=== PATIENT | male | born 1940 | race Two or more races ===

== ENCOUNTER 2021-09-23 20:25 | Inpatient (IN) | payer OTHER, MEDICAID ==
[~2021-09-23] VITALS: Ht 172.7 cm; Wt 63.1 kg
[~2021-09-23 20:25] MED LIST: SUCCINYLCHOLINE CHLORIDE 200MG/10ML IV ONE
[2021-09-23] MEDS ORDERED: LEVETIRACETAM 500MG PREMIX 100 ML IV ONE (20:45)
[2021-09-23] MEDS ORDERED: LORAZEPAM 2MG/ML CPJ IV ONE (20:45)
[2021-09-23] MEDS ORDERED: SUCCINYLCHOLINE CHLORIDE 200MG/10ML IV ONE (21:15)
[2021-09-23] MEDS ORDERED: PROPOFOL 10MG/ML 100ML 100 ML IV SCH (21:45)
[2021-09-23 22:14] LABS: BG BASE EXCESS -10.8 mmol/L (-2.0-2.0); BG CARBOXYHEMOGLOBIN 0.2 % (0.5-1.5); BG FRACTION INSPIRED OXYGEN 60; BG HCO3 ACT 13.8 mmol/L (22.0-26.0); BG METHEMOGLOBIN 0.5 % (0.0-1.5); BG OXYHEMOGLOBIN 98.3 % (94.0-97.0); BG PCO2 27.3 mmHg (35.0-45.0); BG PH 7.321 (7.350-7.450); BG PO2 241.4 mmHg (75.0-100.0); BG SAMPLE SITE LEFT RADIAL; BG TOTAL HEMOGLOBIN 12.2 g/dL (12.0-18.0)
[2021-09-23] MEDS ORDERED: KETAMINE HCL 50 MG/ML 10ML IV ONE (22:15)
[2021-09-23] MEDS ORDERED: LEVOFLOXACIN 500MG PREMIX 100 ML IV ONE (22:30)
[2021-09-23] MEDS ORDERED: SODIUM CHLORIDE 0.9% 1,000 ML IV ONE (22:30)
[2021-09-23] MEDS ORDERED: PIPERACILLIN/TAZOBACTAM 3.375GM/50ML PREMIX IV ONE (22:30)
[2021-09-23] MEDS ORDERED: PIPERACILLIN/TAZ 3.375G PREMIX 50 ML IV NR (22:30)
[2021-09-23 22:41] LABS: BASOPHILS % 0.6 % (0.0-2.0); EOSINOPHILS % 1.2 % (0.0-5.0); HEMOGLOBIN. 11.6 g/dL (14.0-18.0); MEAN CORPUSCULAR HEMOGLOBIN 31.3 pg (28.0-32.0); MEAN CORPUSCULAR VOLUME 91.8 fL (80.0-94.0); MEAN PLATELET VOLUME 7.6 fl (7.4-10.4); MONOCYTES % 5.1 % (2.0-8.0); NEUTROPHILS % 65.1 % (40.0-76.0); PLATELET 200 x1000/uL (130-400); RED CELL DISTRIBUTION WIDTH 14.7 % (11.6-14.6)
[2021-09-23 22:42] LABS: CHLORIDE 107 mEq/L (98-107)
[2021-09-24] VITALS (33 sets, daily range): BP systolic 56–191; BP diastolic 27–110
[2021-09-24] MEDS ORDERED: LEVETIRACETAM 500MG PREMIX 100 ML IV ONE (01:30)
[2021-09-24] MEDS ORDERED: NICARDIPINE 100 MG in SODIUM CHLORIDE 0.9% 60 ML IV PRN ×2 (01:45→14:30)
[2021-09-24] MEDS ORDERED: MANNITOL 12.5G (25%) VIAL 50ML IV ONE (03:45)
[2021-09-24 03:59] LABS: BG CARBOXYHEMOGLOBIN 0.3 % (0.5-1.5); BG DEOXYHEMOGLOBIN 0.9 % (0.0-5.0); BG FRACTION INSPIRED OXYGEN 40; BG HCO3 ACT 21.8 mmol/L (22.0-26.0); BG METHEMOGLOBIN 0.4 % (0.0-1.5); BG OXYGEN SATURATION 99.1 % (92.0-98.5); BG OXYHEMOGLOBIN 98.4 % (94.0-97.0); BG PCO2 34.1 mmHg (35.0-45.0); BG PH 7.423 (7.350-7.450); BG PO2 194.1 mmHg (75.0-100.0); BG SAMPLE SITE RIGHT RADIAL; BG TOTAL RESPIRATORY RATE 18 b/min; BG VENT MODE VENT - AC
[2021-09-24] MEDS ORDERED: PROPOFOL 10MG/ML 100ML 100 ML IV PRN (04:30)
[2021-09-24] MEDS: NICARDIPINE 100 MG in SODIUM CHLORIDE 0.9% 60 ML IV PRN (04:45)
[2021-09-24] MEDS: DEXAMETHASONE 4MG/ML 1ML VIAL IV SCH ×3 (05:50→23:25)
[2021-09-24 06:15] LABS: HEMOGLOBIN 11.5 g/dL (14.0-18.0); MEAN CORPUSCULAR VOLUME 88.7 fL (80.0-94.0); PLATELET 198 x1000/uL (130-400); RED BLOOD CELL COUNT 3.72 mill/uL (4.7-6.1); RED CELL DISTRIBUTION WIDTH 14.6 % (11.6-14.6)
[2021-09-24 06:50] LABS: CHLORIDE 110 mEq/L (98-107)
[2021-09-24] MEDS ORDERED: LEVETIRACETAM 500MG PREMIX 100 ML IV SCH (09:00)
[2021-09-24 09:01] LABS: BG BASE EXCESS -0.3 mmol/L (-2.0-2.0); BG CARBOXYHEMOGLOBIN 0.3 % (0.5-1.5); BG FRACTION INSPIRED OXYGEN 40; BG HCO3 ACT 22.6 mmol/L (22.0-26.0); BG METHEMOGLOBIN 0.4 % (0.0-1.5); BG OXYHEMOGLOBIN 98.3 % (94.0-97.0); BG PCO2 31.6 mmHg (35.0-45.0); BG PH 7.472 (7.350-7.450); BG PO2 211.2 mmHg (75.0-100.0); BG SAMPLE SITE LEFT RADIAL; BG TOTAL HEMOGLOBIN 12.2 g/dL (12.0-18.0); BG VENT MODE VENT - AC
[2021-09-24] MEDS ORDERED: POTASSIUM CHLORIDE 20MEQ TABLET SR PO NR (10:15)
[2021-09-24] MEDS ORDERED: LIDOCAINE HCL/EPINEPHRINE 1%-EPI 1:100,000 20 ML VIAL ONE ×2 (12:12→12:13)
[2021-09-24] MEDS ORDERED: GENTAMICIN SULF 40MG/ML 2ML VIAL ONE (12:13)
[2021-09-24] MEDS ORDERED: LACTATED RINGERS 3,000 ML IV ONE (12:13)
[2021-09-24] MEDS ORDERED: BACITRACIN 15GM TUBE TOP ONE ×2 (12:13→13:25)
[2021-09-24] MEDS ORDERED: THROMBIN (BOVINE) 5000 UNITS/VIAL TOP ONE (12:13)
[2021-09-24 12:18] LABS: INR 1.1; PROTHROMBIN TIME 11.4 sec (9.6-11.0)
[2021-09-24] MEDS ORDERED: MANNITOL 20% 500 ML IV ONE (12:21)
[2021-09-24] MEDS ORDERED: NITROGLYCERIN 50MG PREMIX 0 ML IV ONE (12:22)
[2021-09-24] MEDS ORDERED: DEXAMETHASONE 4MG/ML 1ML VIAL ONE (12:23)
[2021-09-24] MEDS ORDERED: ROCURONIUM BROMIDE 10MG/ML VIAL 5ML IV ONE (12:23)
[2021-09-24] MEDS ORDERED: FENTANYL CITRATE/PF 50MCG/ML 2ML VIAL ONE ×2 (12:23→13:41)
[2021-09-24] MEDS ORDERED: CEFAZOLIN SODIUM 1000MG/VIAL ONE (12:24)
[2021-09-24] MEDS ORDERED: PROPOFOL 200MG/20ML VIAL IV ONE (12:25)
[2021-09-24] MEDS ORDERED: PHENYLEPHRINE HCL 10 MG/ML 1ML (IV VIAL) IV ONE (12:27)
[2021-09-24] MEDS ORDERED: NALOXONE HCL 0.4MG/ML VIAL IV PRN (15:00)
[2021-09-24] MEDS ORDERED: KCL 20MEQ/100ML PREMIX 100 ML IV NR (15:00)
[2021-09-24] MEDS ORDERED: FENTANYL CITRATE/PF 50MCG/ML 2ML VIAL IV PRN (15:30)
[2021-09-24] MEDS: PIPERACILLIN/TAZOBACTAM 3.375 G in DEXTROSE 5% WATER 50 ML IV SCH ×2 (17:03→21:41)
[2021-09-24] MEDS: LEVETIRACETAM 500MG PREMIX 100 ML IV SCH ×2 (17:27→21:36)
[2021-09-24] MEDS: PANTOPRAZOLE SODIUM 40 MG/VIAL IV SCH (18:00)
[2021-09-24] MEDS ORDERED: GADOTERATE MEGLUMINE 5 MMOL/10 ML VIAL IV ONE (18:21)
[2021-09-24] MEDS: DEXT 5%/LACTATED RINGERS 1,000 ML IV SCH (21:36)
[2021-09-24] MEDS ORDERED: CEFAZOLIN SODIUM 1000MG/VIAL IV SCH (22:00)
[2021-09-24] MEDS ORDERED: CEFAZOLIN 1000MG PREMIX 50 ML IV SCH (22:00)
[2021-09-24] MEDS: CEFAZOLIN 1000MG PREMIX 50 ML IV SCH (23:25)
[2021-09-25] VITALS (96 sets, daily range): BP systolic 64–131; BP diastolic 29–60
[2021-09-25] MEDS: NICARDIPINE 100 MG in SODIUM CHLORIDE 0.9% 60 ML IV PRN ×3 (05:25→23:08)
[2021-09-25] MEDS: DEXAMETHASONE 4MG/ML 1ML VIAL IV SCH ×4 (05:28→23:06)
[2021-09-25] MEDS: CEFAZOLIN 1000MG PREMIX 50 ML IV SCH ×3 (05:28→22:11)
[2021-09-25] MEDS: PIPERACILLIN/TAZOBACTAM 3.375 G in DEXTROSE 5% WATER 50 ML IV SCH ×3 (05:29→21:12)
[2021-09-25 05:40] LABS: HEMATOCRIT. 33.6 % (42.0-52.0); HEMOGLOBIN. 11.4 g/dL (14.0-18.0); MEAN CORPUSCULAR HEMOGLOBIN 30.3 pg (28.0-32.0); MEAN CORPUSCULAR VOLUME 89.2 fL (80.0-94.0); MEAN PLATELET VOLUME 7.4 fl (7.4-10.4); PLATELET 212 x1000/uL (130-400); RED BLOOD CELL COUNT 3.76 mill/uL (4.7-6.1)
[2021-09-25 05:57] LABS: CHLORIDE 114 mEq/L (98-107)
[2021-09-25] MEDS ORDERED: PROPOFOL 10MG/ML 100ML 100 ML IV PRN (06:00)
[2021-09-25] MEDS: PANTOPRAZOLE SODIUM 40 MG/VIAL IV SCH (08:52)
[2021-09-25 09:59] LABS: BG BASE EXCESS -2.4 mmol/L (-2.0-2.0); BG CARBOXYHEMOGLOBIN 0.3 % (0.5-1.5); BG DEOXYHEMOGLOBIN 1.3 % (0.0-5.0); BG FRACTION INSPIRED OXYGEN 30; BG HCO3 ACT 19.9 mmol/L (22.0-26.0); BG METHEMOGLOBIN 0.5 % (0.0-1.5); BG OXYGEN SATURATION 98.7 % (92.0-98.5); BG OXYHEMOGLOBIN 97.9 % (94.0-97.0); BG PCO2 26.5 mmHg (35.0-45.0); BG PH 7.493 (7.350-7.450); BG PO2 137.2 mmHg (75.0-100.0); BG SAMPLE SITE ALINE; BG TOTAL HEMOGLOBIN 10.7 g/dL (12.0-18.0); BG VENT MODE VENT - AC
[2021-09-25] MEDS: LEVETIRACETAM 500MG PREMIX 100 ML IV SCH ×2 (10:26→21:12)
[2021-09-25] MEDS ORDERED: IPRATROPIUM/ALBUTEROL 0.5-3(2.5)MG/3ML NEB HHN PRN (11:00)
[2021-09-25 11:55] LABS: PLATELET ESTIMATE NORMAL
[2021-09-25] MEDS: MORPHINE SULFATE 2 MG/ML CPJ (NOT FOR IM USE) IV PRN ×4 (13:10→23:07)
[2021-09-25] MEDS: PROPOFOL 10MG/ML 100ML 100 ML IV PRN (16:19)
[2021-09-25] MEDS: DEXT 5%/LACTATED RINGERS 1,000 ML IV SCH (16:19)
[2021-09-25] MEDS ORDERED: TAMS-11 PO (17:14)
[2021-09-25] MEDS ORDERED: LISI20TA31 MT (17:15)
[2021-09-25] MEDS ORDERED: SIMV-46 MT (17:15)
[2021-09-25] MEDS ORDERED: PANT40TA51 MT (17:15)
[2021-09-25] MEDS: IPRATROPIUM/ALBUTEROL 0.5-3(2.5)MG/3ML NEB HHN SCH (19:57)
[2021-09-26] VITALS (96 sets, daily range): BP systolic 93–134; BP diastolic 28–57
[2021-09-26] MEDS: PROPOFOL 10MG/ML 100ML 100 ML IV PRN ×3 (00:13→18:40)
[2021-09-26] MEDS: IPRATROPIUM/ALBUTEROL 0.5-3(2.5)MG/3ML NEB HHN SCH ×4 (01:58→20:12)
[2021-09-26 06:25] LABS: HEMATOCRIT. 31.3 % (42.0-52.0); HEMOGLOBIN. 10.7 g/dL (14.0-18.0); MEAN CORPUSCULAR HEMOGLOBIN 30.8 pg (28.0-32.0); MEAN CORPUSCULAR VOLUME 90.2 fL (80.0-94.0); MEAN PLATELET VOLUME 7.8 fl (7.4-10.4); PLATELET 193 x1000/uL (130-400); RED BLOOD CELL COUNT 3.47 mill/uL (4.7-6.1); RED CELL DISTRIBUTION WIDTH 15.3 % (11.6-14.6)
[2021-09-26] MEDS: DEXAMETHASONE 4MG/ML 1ML VIAL IV SCH ×3 (06:27→18:41)
[2021-09-26] MEDS: CEFAZOLIN 1000MG PREMIX 50 ML IV SCH ×2 (06:28→15:37)
[2021-09-26] MEDS: PIPERACILLIN/TAZOBACTAM 3.375 G in DEXTROSE 5% WATER 50 ML IV SCH ×3 (06:28→21:44)
[2021-09-26] MEDS: NICARDIPINE 100 MG in SODIUM CHLORIDE 0.9% 60 ML IV PRN ×2 (06:30→15:38)
[2021-09-26] MEDS: DEXT 5%/LACTATED RINGERS 1,000 ML IV SCH ×2 (06:31→21:45)
[2021-09-26] MEDS: PANTOPRAZOLE SODIUM 40 MG/VIAL IV SCH (08:25)
[2021-09-26] MEDS: LEVETIRACETAM 500MG PREMIX 100 ML IV SCH ×2 (08:26→21:44)
[2021-09-26 10:13] LABS: BG BASE EXCESS -2.7 mmol/L (-2.0-2.0); BG CARBOXYHEMOGLOBIN 0.3 % (0.5-1.5); BG DEOXYHEMOGLOBIN 1.8 % (0.0-5.0); BG FRACTION INSPIRED OXYGEN 30; BG HCO3 ACT 20.7 mmol/L (22.0-26.0); BG METHEMOGLOBIN 0.2 % (0.0-1.5); BG OXYGEN SATURATION 98.2 % (92.0-98.5); BG OXYHEMOGLOBIN 97.7 % (94.0-97.0); BG PCO2 31.1 mmHg (35.0-45.0); BG PH 7.441 (7.350-7.450); BG PO2 111.6 mmHg (75.0-100.0); BG SAMPLE SITE ALINE; BG TOTAL RESPIRATORY RATE 15 b/min; BG VENT MODE VENT - AC
[2021-09-26 11:18] LABS: PLATELET ESTIMATE NORMAL
[2021-09-27] VITALS (96 sets, daily range): BP systolic 81–148; BP diastolic 31–62
[2021-09-27] MEDS: DEXAMETHASONE 4MG/ML 1ML VIAL IV SCH ×4 (01:07→17:23)
[2021-09-27] MEDS: IPRATROPIUM/ALBUTEROL 0.5-3(2.5)MG/3ML NEB HHN SCH ×4 (01:46→20:28)
[2021-09-27] MEDS: PROPOFOL 10MG/ML 100ML 100 ML IV PRN ×3 (06:02→17:24)
[2021-09-27] MEDS: PIPERACILLIN/TAZOBACTAM 3.375 G in DEXTROSE 5% WATER 50 ML IV SCH ×3 (06:03→21:17)
[2021-09-27] MEDS: MORPHINE SULFATE 2 MG/ML CPJ (NOT FOR IM USE) IV PRN (06:14)
[2021-09-27 07:25] LABS: HEMATOCRIT. 29.3 % (42.0-52.0); HEMOGLOBIN. 9.9 g/dL (14.0-18.0); MEAN CORPUSCULAR HEMOGLOBIN 30.5 pg (28.0-32.0); MEAN CORPUSCULAR VOLUME 90.2 fL (80.0-94.0); MEAN PLATELET VOLUME 7.7 fl (7.4-10.4); PLATELET 167 x1000/uL (130-400); RED BLOOD CELL COUNT 3.24 mill/uL (4.7-6.1)
[2021-09-27] MEDS: PANTOPRAZOLE SODIUM 40 MG/VIAL IV SCH (09:18)
[2021-09-27] MEDS: LEVETIRACETAM 500MG PREMIX 100 ML IV SCH ×2 (09:20→20:07)
[2021-09-27 10:30] LABS: PLATELET ESTIMATE NORMAL
[2021-09-27] MEDS: DEXT 5%/LACTATED RINGERS 1,000 ML IV SCH (17:23)
[2021-09-27] MEDS: NICARDIPINE 100 MG in SODIUM CHLORIDE 0.9% 60 ML IV PRN (17:31)
[2021-09-28] VITALS (94 sets, daily range): BP systolic 86–231; BP diastolic 29–206
[2021-09-28] MEDS: DEXAMETHASONE 4MG/ML 1ML VIAL IV SCH ×4 (00:58→17:30)
[2021-09-28] MEDS: IPRATROPIUM/ALBUTEROL 0.5-3(2.5)MG/3ML NEB HHN SCH ×4 (04:15→20:57)
[2021-09-28] MEDS: PROPOFOL 10MG/ML 100ML 100 ML IV PRN ×4 (05:33→21:31)
[2021-09-28] MEDS: PIPERACILLIN/TAZOBACTAM 3.375 G in DEXTROSE 5% WATER 50 ML IV SCH ×3 (05:49→21:29)
[2021-09-28] MEDS: DEXT 5%/LACTATED RINGERS 1,000 ML IV SCH ×2 (08:17→20:21)
[2021-09-28] MEDS: LEVETIRACETAM 500MG PREMIX 100 ML IV SCH ×2 (08:17→20:21)
[2021-09-28] MEDS: PANTOPRAZOLE SODIUM 40 MG/VIAL IV SCH (08:17)
[2021-09-28 08:25] LABS: HEMATOCRIT. 27.7 % (42.0-52.0); HEMOGLOBIN. 9.6 g/dL (14.0-18.0); MEAN CORPUSCULAR HEMOGLOBIN 31.3 pg (28.0-32.0); MEAN PLATELET VOLUME 7.8 fl (7.4-10.4); PLATELET 143 x1000/uL (130-400); RED BLOOD CELL COUNT 3.08 mill/uL (4.7-6.1)
[2021-09-28] MEDS ORDERED: POTASSIUM CHLORIDE INJ 40 MEQ in DEXT 5% WATER 250 ML IV ONE (10:30)
[2021-09-28] MEDS ORDERED: DEXTROSE 50% WATER 50ML SYRINGE IV PRN (10:45)
[2021-09-28] MEDS: BLOOD SUGAR DIAGNOSTIC STRIP TEST SCH ×3 (11:41→20:20)
[2021-09-28] MEDS: INSULIN LISPRO 100 UNITS/ML SUBCUT SCH ×3 (11:51→20:22)
[2021-09-28 12:39] LABS: PLATELET ESTIMATE NORMAL
[2021-09-28] MEDS: KCL 20MEQ/100ML PREMIX 100 ML IV SCH ×2 (12:44→14:58)
[2021-09-28] MEDS ORDERED: DEXTROSE 5% WATER 1,000 ML IV SCH (15:15)
[2021-09-28] MEDS ORDERED: PROPOFOL 10MG/ML 100ML 100 ML IV PRN (16:30)
[2021-09-29] VITALS (96 sets, daily range): BP systolic 93–157; BP diastolic 35–112
[2021-09-29] MEDS: DEXAMETHASONE 4MG/ML 1ML VIAL IV SCH ×4 (00:31→17:39)
[2021-09-29] MEDS: IPRATROPIUM/ALBUTEROL 0.5-3(2.5)MG/3ML NEB HHN SCH ×4 (00:40→19:59)
[2021-09-29] MEDS: PROPOFOL 10MG/ML 100ML 100 ML IV PRN ×2 (01:45→06:27)
[2021-09-29 06:20] LABS: HEMATOCRIT. 29.5 % (42.0-52.0); HEMOGLOBIN. 10.1 g/dL (14.0-18.0); MEAN CORPUSCULAR HEMOGLOBIN 31.1 pg (28.0-32.0); MEAN CORPUSCULAR VOLUME 90.6 fL (80.0-94.0); MEAN PLATELET VOLUME 7.9 fl (7.4-10.4); PLATELET 143 x1000/uL (130-400); RED BLOOD CELL COUNT 3.26 mill/uL (4.7-6.1); RED CELL DISTRIBUTION WIDTH 14.8 % (11.6-14.6)
[2021-09-29] MEDS: BLOOD SUGAR DIAGNOSTIC STRIP TEST SCH ×4 (06:23→20:42)
[2021-09-29] MEDS: PIPERACILLIN/TAZOBACTAM 3.375 G in DEXTROSE 5% WATER 50 ML IV SCH (06:23)
[2021-09-29] MEDS: INSULIN LISPRO 100 UNITS/ML SUBCUT SCH ×4 (06:26→20:44)
[2021-09-29 06:29] LABS: CHLORIDE 118 mEq/L (98-107)
[2021-09-29] MEDS: LEVETIRACETAM 500MG PREMIX 100 ML IV SCH ×2 (08:57→20:42)
[2021-09-29] MEDS: PANTOPRAZOLE SODIUM 40 MG/VIAL IV SCH (08:57)
[2021-09-29] MEDS: MORPHINE SULFATE 2 MG/ML CPJ (NOT FOR IM USE) IV PRN (12:12)
[2021-09-29] MEDS: DEXT 5%/LACTATED RINGERS 1,000 ML IV SCH (12:13)
[2021-09-29 12:46] LABS: BG BASE EXCESS 1.8 mmol/L (-2.0-2.0); BG CARBOXYHEMOGLOBIN 0.3 % (0.5-1.5); BG DEOXYHEMOGLOBIN 1.9 % (0.0-5.0); BG FRACTION INSPIRED OXYGEN 30; BG HCO3 ACT 24.8 mmol/L (22.0-26.0); BG METHEMOGLOBIN 0.4 % (0.0-1.5); BG OXYGEN SATURATION 98.1 % (92.0-98.5); BG OXYHEMOGLOBIN 97.4 % (94.0-97.0); BG PCO2 33.1 mmHg (35.0-45.0); BG PH 7.492 (7.350-7.450); BG PO2 112.8 mmHg (75.0-100.0); BG SAMPLE SITE RIGHT RADIAL; BG TOTAL HEMOGLOBIN 11.3 g/dL (12.0-18.0); BG VENT MODE VENT - CPAP
[2021-09-29] MEDS: NICARDIPINE 100 MG in SODIUM CHLORIDE 0.9% 60 ML IV PRN (14:54)
[2021-09-29 17:42] LABS: PLATELET ESTIMATE NORMAL
[2021-09-29 18:37] LABS: BG BASE EXCESS 2.3 mmol/L (-2.0-2.0); BG CARBOXYHEMOGLOBIN 0.3 % (0.5-1.5); BG DEOXYHEMOGLOBIN 1.8 % (0.0-5.0); BG FRACTION INSPIRED OXYGEN 36; BG HCO3 ACT 25.2 mmol/L (22.0-26.0); BG METHEMOGLOBIN 0.4 % (0.0-1.5); BG OXYGEN SATURATION 98.2 % (92.0-98.5); BG OXYHEMOGLOBIN 97.5 % (94.0-97.0); BG PCO2 32.7 mmHg (35.0-45.0); BG PH 7.504 (7.350-7.450); BG PO2 116.9 mmHg (75.0-100.0); BG SAMPLE SITE RIGHT RADIAL; BG TOTAL HEMOGLOBIN 10.8 g/dL (12.0-18.0); BG VENT MODE NASAL CANNULA
[2021-09-30] VITALS (94 sets, daily range): BP systolic 113–155; BP diastolic 20–88
[2021-09-30] MEDS: DEXAMETHASONE 4MG/ML 1ML VIAL IV SCH ×4 (00:09→18:04)
[2021-09-30] MEDS: IPRATROPIUM/ALBUTEROL 0.5-3(2.5)MG/3ML NEB HHN SCH ×2 (03:47→08:08)
[2021-09-30] MEDS: NICARDIPINE 100 MG in SODIUM CHLORIDE 0.9% 60 ML IV PRN (04:48)
[2021-09-30] MEDS: DEXT 5%/LACTATED RINGERS 1,000 ML IV SCH (05:47)
[2021-09-30] MEDS: BLOOD SUGAR DIAGNOSTIC STRIP TEST SCH ×2 (05:47→11:30)
[2021-09-30 06:15] LABS: HEMATOCRIT. 33.2 % (42.0-52.0); HEMOGLOBIN. 10.9 g/dL (14.0-18.0); MEAN CORPUSCULAR HEMOGLOBIN 29.6 pg (28.0-32.0); MEAN CORPUSCULAR VOLUME 90.6 fL (80.0-94.0); PLATELET 135 x1000/uL (130-400); RED BLOOD CELL COUNT 3.67 mill/uL (4.7-6.1); RED CELL DISTRIBUTION WIDTH 15.4 % (11.6-14.6)
[2021-09-30 06:41] LABS: CHLORIDE 115 mEq/L (98-107)
[2021-09-30] MEDS: INSULIN LISPRO 100 UNITS/ML SUBCUT SCH ×2 (07:00→13:02)
[2021-09-30] MEDS: PANTOPRAZOLE SODIUM 40 MG/VIAL IV SCH (08:32)
[2021-09-30] MEDS: LEVETIRACETAM 500MG PREMIX 100 ML IV SCH ×2 (08:32→20:36)
[2021-09-30] MEDS: AMLODIPINE 5MG TABLET PO SCH ×2 (10:56→20:35)
[2021-09-30 13:12] LABS: PLATELET ESTIMATE NORMAL
[2021-10-01] VITALS (34 sets, daily range): BP systolic 96–154; BP diastolic 35–81
[2021-10-01] MEDS: DEXAMETHASONE 4MG/ML 1ML VIAL IV SCH ×3 (00:54→11:48)
[2021-10-01 07:21] LABS: CHLORIDE 110 mEq/L (98-107)
[2021-10-01 07:25] LABS: HEMATOCRIT. 30.4 % (42.0-52.0); MEAN CORPUSCULAR HEMOGLOBIN 30.1 pg (28.0-32.0); MEAN CORPUSCULAR VOLUME 91.6 fL (80.0-94.0); PLATELET 120 x1000/uL (130-400); RED BLOOD CELL COUNT 3.32 mill/uL (4.7-6.1); RED CELL DISTRIBUTION WIDTH 14.8 % (11.6-14.6)
[2021-10-01 07:28] LABS: PHOSPHORUS 3.1 mg/dL (2.5-4.9)
[2021-10-01] MEDS: AMLODIPINE 5MG TABLET PO SCH ×2 (08:19→21:39)
[2021-10-01] MEDS: PANTOPRAZOLE SODIUM 40 MG/VIAL IV SCH (08:19)
[2021-10-01] MEDS: LEVETIRACETAM 500MG PREMIX 100 ML IV SCH ×2 (08:20→21:37)
[2021-10-01 17:10] LABS: PLATELET ESTIMATE DECREASED
[2021-10-02] VITALS (12 sets, daily range): BP systolic 108–158; BP diastolic 48–87
[2021-10-02] MEDS: PANTOPRAZOLE SODIUM 40 MG/VIAL IV SCH (09:34)
[2021-10-02] MEDS: AMLODIPINE 5MG TABLET PO SCH ×2 (09:34→21:37)
[2021-10-02] MEDS: LEVETIRACETAM 500MG PREMIX 100 ML IV SCH ×2 (09:34→21:36)
[2021-10-02] MEDS ORDERED: GADOTERATE MEGLUMINE 5 MMOL/10 ML VIAL IV ONE (10:33)
[2021-10-02] MEDS: DEXAMETHASONE 4MG/ML 1ML VIAL IV SCH ×4 (13:07→23:44)
[2021-10-02] MEDS: FAMOTIDINE 20MG TABLET PO SCH (21:37)
[2021-10-03] VITALS (16 sets, daily range): BP systolic 117–155; BP diastolic 56–90
[2021-10-03] MEDS: DEXAMETHASONE 4MG/ML 1ML VIAL IV SCH (05:49)
[2021-10-03] MEDS: AMLODIPINE 5MG TABLET PO SCH ×2 (08:52→20:15)
[2021-10-03] MEDS: LEVETIRACETAM 500MG TABLET PO SCH ×2 (08:52→18:04)
[2021-10-03] MEDS: FAMOTIDINE 20MG TABLET PO SCH ×2 (08:53→20:14)
[2021-10-04] VITALS (12 sets, daily range): BP systolic 97–152; BP diastolic 24–69
[2021-10-04] MEDS: DEXAMETHASONE 4MG/ML 1ML VIAL IV SCH (08:28)
[2021-10-04] MEDS: LEVETIRACETAM 500MG TABLET PO SCH ×2 (08:28→16:47)
[2021-10-04] MEDS: FAMOTIDINE 20MG TABLET PO SCH ×2 (08:28→21:01)
[2021-10-04] MEDS: AMLODIPINE 5MG TABLET PO SCH ×2 (08:31→21:01)
[2021-10-04 13:28] LABS: BASOPHILS % 0.1 % (0.0-2.0); EOSINOPHILS % 0.7 % (0.0-5.0); HEMOGLOBIN. 11.2 g/dL (14.0-18.0); LYMPHOCYTES % 7.1 % (20.0-50.0); MEAN CORPUSCULAR HEMOGLOBIN 29.6 pg (28.0-32.0); MEAN CORPUSCULAR VOLUME 89.7 fL (80.0-94.0); MEAN PLATELET VOLUME 8.3 fl (7.4-10.4); MONOCYTES % 2.9 % (2.0-8.0); NEUTROPHILS % 89.2 % (40.0-76.0); PLATELET 131 x1000/uL (130-400); RED BLOOD CELL COUNT 3.79 mill/uL (4.7-6.1); RED CELL DISTRIBUTION WIDTH 14.2 % (11.6-14.6)
[2021-10-04 13:40] LABS: CHLORIDE 107 mEq/L (98-107)
[2021-10-04] MEDS: DESMOPRESSIN ACETATE 0.1MG TABLET PO SCH (21:02)
[2021-10-05] VITALS (12 sets, daily range): BP systolic 108–133; BP diastolic 21–72
[2021-10-05] MEDS: LEVETIRACETAM 500MG TABLET PO SCH ×2 (08:43→17:00)
[2021-10-05] MEDS: DESMOPRESSIN ACETATE 0.1MG TABLET PO SCH ×2 (08:43→20:45)
[2021-10-05] MEDS: DEXAMETHASONE 4MG/ML 1ML VIAL IV SCH (08:43)
[2021-10-05] MEDS: FAMOTIDINE 20MG TABLET PO SCH ×2 (08:43→20:44)
[2021-10-05] MEDS: AMLODIPINE 5MG TABLET PO SCH ×2 (08:44→20:47)
[2021-10-06] VITALS (12 sets, daily range): BP systolic 99–140; BP diastolic 37–75
[2021-10-06] MEDS: LEVETIRACETAM 500MG TABLET PO SCH ×2 (09:01→17:39)
[2021-10-06] MEDS: FAMOTIDINE 20MG TABLET PO SCH ×2 (09:01→21:53)
[2021-10-06] MEDS: DESMOPRESSIN ACETATE 0.1MG TABLET PO SCH ×2 (09:01→21:53)
[2021-10-06] MEDS: AMLODIPINE 5MG TABLET PO SCH ×2 (09:01→21:53)
[2021-10-07] VITALS (13 sets, daily range): BP systolic 100–142; BP diastolic 37–71
[2021-10-07] MEDS: LEVETIRACETAM 500MG TABLET PO SCH ×2 (08:08→16:17)
[2021-10-07] MEDS: AMLODIPINE 5MG TABLET PO SCH ×2 (08:08→21:18)
[2021-10-07] MEDS: FAMOTIDINE 20MG TABLET PO SCH ×2 (08:08→21:17)
[2021-10-07] MEDS: DESMOPRESSIN ACETATE 0.1MG TABLET PO SCH ×2 (08:09→21:17)
[2021-10-07] MEDS ORDERED: KEPP500 PO (18:07)
[2021-10-07 20:01] LABS: HEMATOCRIT 41.7 % (42.0-52.0)
[2021-10-08] VITALS (8 sets, daily range): BP systolic 110–121; BP diastolic 51–67
[2021-10-08] MEDS: DESMOPRESSIN ACETATE 0.1MG TABLET PO SCH (08:51)
[2021-10-08] MEDS: AMLODIPINE 5MG TABLET PO SCH (08:53)
[2021-10-08] MEDS: LEVETIRACETAM 500MG TABLET PO SCH (08:53)
[2021-10-08] MEDS: FAMOTIDINE 20MG TABLET PO SCH (08:53)
== END 2021-10-08 12:40 | disposition home health service (06) | DRG 25 ==
LOC: ER 20:25 → CVICU 23:52 → EDBD 23:52 → EDBEDREQ 09-24 00:06 → EDBEDREQTM 09-24 00:06 → EDBEDREQDT 09-24 00:06 → ENRESERV 09-24 02:10 → MICUNO 09-24 19:36 → 3WST 10-01 14:50
PROVIDERS: ADMIT Internal Medicine; ATTEND Internal Medicine
PROC: 5A1955Z Respiratory Ventilation, Greater than 96 Consecutive Hours (ICD-10-PCS; 2021-09-22)
PROC: 0BH17EZ Insertion of Endotracheal Airway into Trachea, Via Natural or Artificial Opening (ICD-10-PCS; 2021-09-22)
PROC: 0NR Head and Facial Bones, Replacement (ICD-10-PCS; principal; 2021-09-24)
PROC: 00B70ZZ Excision of Cerebral Hemisphere, Open Approach (ICD-10-PCS; 2021-09-24)
PROC: 00U207Z Supplement Dura Mater with Autologous Tissue Substitute, Open Approach (ICD-10-PCS; 2021-09-24)
PROC: 02HV33Z Insertion of Infusion Device into Superior Vena Cava, Percutaneous Approach (ICD-10-PCS; 2021-09-27)
PROC: 4A10X4Z Monitoring of Central Nervous Electrical Activity, External Approach (ICD-10-PCS; 2021-10-01)
DX: C71.1 Malignant neoplasm of frontal lobe (principal); J96.00 Acute respiratory failure, unspecified whether with hypoxia or hypercapnia; R40.20 Unspecified coma; G93.6 Cerebral edema; J69.0 Pneumonitis due to inhalation of food and vomit; G93.41 Metabolic encephalopathy; G40.901 Epilepsy, unspecified, not intractable, with status epilepticus; N40.0 Benign prostatic hyperplasia without lower urinary tract symptoms; E78.5 Hyperlipidemia, unspecified; G93.0 Cerebral cysts; E78.00 Pure hypercholesterolemia, unspecified; F17.200 Nicotine dependence, unspecified, uncomplicated; I10 Essential (primary) hypertension; Z20.822 Contact with and (suspected) exposure to COVID-19
CPT/HCPCS: 36415; 36600; 70553; 71045; 76937; 80048; 80053; 82375; 82542; 82805; 82962; 83036; 83735; 83935; 84100; 84478; 85014; 85018; 85025; 85027; 86850; 86900; 87070; 87075; 87426; 88305; 88331; 92610; 93005; 94002; 94003; 94640; 97116; 97162; 97166; 97530; 97535; 99291; A9577; C1713; C1725; C1758; C1893; C9113; J0330; J0690; J1100; J1580; J1815; J1953; J1956; J2060; J2150; J2270; J2370; J2543; J2704; J3010; J3480; J3490; J7030; J7040; J7042; J7050; J7060; J7070; J7120; J7121